=== PATIENT | female | born 1980 | race Two or more races ===

== ENCOUNTER 2024-06-02 21:40 | Emergency (ER) | payer MEDICAID, SELFPAY ==
[2024-06-02 21:44] VITALS: PULSE 92; RESP 18; O2SAT 98
--- NOTE | 2024-06-02 21:56 | PC.NURSE ---
Pt standing without assistance and ambulating in lobby.
[2024-06-02 22:03] VITALS: BP 125/77; PULSE 100; RESP 18; TEMP 36.6; O2SAT 96
[2024-06-02 22:04] VITALS: BMI 34.5
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
[2024-06-02 23:37] LABS: HCG,Qualitative Serum Negative
[2024-06-03 00:30] VITALS: BP 127/85; PULSE 100; RESP 18; TEMP 36.7; O2SAT 97
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
--- NOTE | 2024-06-03 02:04 | PC.NURSE ---
Pt requested Pain medication- stated i would notified DOLLY Curry, new orders given and verified. When this pattern chart writer called the pt back to medicate, security stated she had left prior to being medicated. Medication returned back to [facility].
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
== END 2024-06-03 02:08 | disposition home or self-care (01) ==
PROVIDERS: Physician Assistant; Emergency Provider Emergency Medicine
DX: S70.02XA Contusion of left hip, initial encounter (principal); W50.1XXA Accidental kick by another person, initial encounter; I10 Essential (primary) hypertension; E11.9 Type 2 diabetes mellitus without complications
CPT/HCPCS: 36415; 73503; 84703; 99283

== ENCOUNTER 2024-08-06 02:29 | Emergency (ER) | payer MEDICAID, SELFPAY ==
[2024-08-06 02:32] VITALS: PULSE 106; RESP 16; O2SAT 98
[2024-08-06 02:52] VITALS: BP 143/77; PULSE 84; RESP 20; TEMP 36.3; O2SAT 95
[2024-08-06] MEDS: DIAZEPAM 5 MG TABLET 10 MG PO (04:41)
--- NOTE | 2024-08-06 05:54 | EDNOTE_ITS ---
<Statement entered by Cally Conrad MD - 08/06/24 18:10> As co-signing physician, I was present and available for consult prn. I concur with the plan and care as documented by the midlevel provider. Nausea/Vomit./Diarrhea-RME/HPI General Chief complaint: General Adult/Misc Complain Stated complaint: bugs comeing out of skin Time Seen by Provider: 08/06/24 03:07 Arrival date/time: 08/06/24 02:29 43F with history of homelessness, drug use, DM, and HTN presents to ED with complaint of bugs coming out of her skin. Patient did meth 4 days ago after not for 8 months. Limitations: no limitations Related Data Previous Rx's ?Medication ?Instructions ?Recorded acetaminophen 500 mg capsule 1,000 mg (2 x 500 mg) PO Q6H PRN 06/18/21 fever or pain #30 caps ibuprofen 600 mg tablet 600 mg PO Q8H PRN fever or p ain 06/18/21 #30 tabs ondansetron 4 mg disintegrating 4 mg PO Q8H PRN nausea and 05/08/23 tablet vomiting #10 tabs Allergies Allergy/AdvReac Type Severity Reaction Status Date / Time amoxicillin Allergy Severe Hives Verified 08/06/24 02:40 Review of Systems Review of Systems Systems Reviewed: All systems reviewed, normal except as documented Constitutional Constitutional: Reports system reviewed and no additional complaints, except as documented, Denies fever(s) and Denies headache(s) ENT Ears, Nose, Mouth, and Throat: Denies disequilibrium and Denies headache(s) Cardiovascular Cardiovascular: Reports system reviewed and no additional complaints, except as documented, Denies chest pain and Denies dyspnea Respiratory Respiratory: Reports system reviewed and no additional complaints, except as documented, Denies cough and Denies dyspnea Gastrointestinal Gastrointestinal: Reports system reviewed and no additional complaints, except as documented, Denies abdominal pain, Denies nausea and Denies vomiting Neurologic Neurologic: Reports system reviewed and no additional complaints, except as documented, Denies confusion, Denies disequilibrium and Denies headache(s) Psychiatric Psychiatric: Denies confusion Past Medical History Past Medical History NEUROLOGIC: Positive Head Trauma CARDIAC: Positive Cardiac Disorders and Hypertension; Negative Congestive Heart Failure RESPIRATORY: Negative Chronic Obstructive Pulmonary Disease (COPD) or Asthma GASTROINTESTINAL: Negative Gastrointestinal Disorders GENITOURINARY: Negative Genitourinary Disorders or Renal Disease REPRODUCTIVE: Negative Pelvic Inflammatory Disease MUSCULOSKELETAL: Negative Musculoskeletal Disorders ENT: Positive Head Trauma ENDOCRINE: Positive Diabetes Mellitus Type 2; Negative Diabetes Mellitus Type 1 HEMATOLOGIC: Negative Blood Disorders or Sickle Cell Disease PSYCHO/SOCIAL: Positive Psychiatric Problems, Schizophrenia, Recreational Drug Use, Bipolar Disorder, Depression and Anxiety; Negative Self-Mutilation OTHER HISTORY: Negative Autoimmune Disease Family History FAMILY HISTORY: Positive Family Psychiatric Problems, Family Respiratory Disorders, Family Gastrointestinal Problems, Family Cancer and Family Surgery; Negative Family Cardiac Disorders or Family Anesthesia Reaction Social History SMOKING STATUS: Current every day smoker ED Exam General Limitations: Present no limitations General appearance: Present alert, in no apparent distress and anxious Head Head exam: Present atraumatic Eye Eye exam: Present normal appearance, PERRL and EOMI ENT ENT exam: Present normal exam, normal oropharynx and mucous membranes moist Neck Neck exam: Present normal inspection, full ROM and trachea midline Chest Chest inspection: Present normal inspection and symmetric chest wall rise Respiratory Respiratory exam: Present normal lung sounds bilaterally Cardiovascular Cardiovascular exam: Present regular rate, normal rhythm and normal heart sounds Abdominal Exam Abdominal exam: Present soft and normal bowel sounds Extremities Exam Extremities exam: Present normal inspection and full ROM Back Exam Back exam: Present normal inspection and full ROM Neurological Exam Neurological exam: Present alert, oriented X3 and CN II-XII intact Psychiatric Psychiatric exam: Present normal affect and normal mood Skin Skin exam: Present warm, dry, intact and normal color Course Quality Measures none Orders Category Date Time Status Diazepam [Valium] Med 08/06/24 03:27 Discontinued 10 mg PO X1 ONE Vital Signs Vital signs: Vital Signs Temperature 97.4 F 08/06/24 02:52 Pulse Rate 84 08/06/24 02:52 Respiratory Rate 20 08/06/24 02:52 Blood Pressure 143/77 H 08/06/24 02:52 Pulse Oximetry (%) 95 08/06/24 02:52 Oxygen Delivery Method Room Air 08/06/24 02:52 O2 at 95% on RA and WNLs Nausea/Vomiting/Diarrhea MDM Narrative MDM Narrative:: 43F with history of homelessness, drug use, DM, and HTN presents to ED with complaint of bugs coming out of her skin. Patient did meth 4 days ago after not for 8 months. Physical exam reveals no obvious bugs in skin. Patient is afebrile, alert, but agitated/anxious. Meds and compliance counsel given. Patient data External records reviewed:: [facility] previous records Clinical information provided by:: patient Social determinants that could affect healthcare access:: housing Patient has the following chronic illnesses:: homelessness, drug use, DM, and HTN How is presenting disease/condition affected by chronic disease/condition?: caused by Evaluation data The following diagnostics were reviewed and interpreted by me:: other (specify) (none) Lab and/or radiology exams considered but not ordered:: not ordered Interpretation Summary: n/a Medications / Prescriptions Medications / Prescriptions considered but not ordered:: ordered Medication administrations:: Medication Administration History Discontinued Medications Diazepam (Diazepam 5 Mg Tablet) 10 mg PO X1 ONE Stop: 08/06/24 03:28 Last Admin: 08/06/24 04:41 Dose: 10 mg Documented By: JE above Consultations Consultation(s) initiated? (list below): No Diagnosis Nausea Differential Diagnosis: traveler's diarrhea, food poisoning, gastro enteritis, clostridium difficile infection, drug-induced nausea and vomiting, dehydration and other (drug adverse reaction) Most likely diagnosis given after review of the tests above:: drug adverse reaction Admission Indicated Admission indicated?: not indicated Admission Request Was there a request for admission?: No Disposition Plan Disposition Plan: Discharge Discharge Attestation Discharge Attestation: The patient and all family members were given an opportunity to ask questions and understood the discharge instructions. Discharge instructions specifically effects, indications for sooner follow up or return to the emergency department, and the expected course of current diagnosis. Patient condition: Stable Discharge Plan Plan Patient Disposition: HOME (Self Care) Discharge Disposition comment: Stable Prescriptions/Referrals Prescriptions/Med Rec: No Action ibuprofen 600 mg tablet 600 mg PO Q8H PRN (Reason: fever or pain) Qty: 30 0RF acetaminophen 500 mg capsule 1,000 mg PO Q6H PRN (Reason: fever or pain) Qty: 30 0RF ondansetron 4 mg tablet,disintegrating 4 mg PO Q8H PRN (Reason: nausea and vomiting) Qty: 10 0RF Referrals: No Primary/Family,Physician [Primary Care Provider] - In 1 week Problem List Clinical Impression: Adverse drug reaction Patient/Caregiver Discharge Instructions Education Materials: ED Drug Reaction, Other Additional Instructions: Please follow-up with PCP within 24-48 hours and return immediately if symptoms worsen. Print Language: Kiswahili Stand Alone Forms: Patient Portal Info Letter PA/SINGE WINDER Supervising Physician DOLLY/SINGE WINDER Supervising Physician: Dr. Conrad
== END 2024-08-06 05:34 | disposition home or self-care (01) ==
PROVIDERS: Emergency Provider Emergency Medicine
DX: T50.905A Adverse effect of unspecified drugs, medicaments and biological substances, initial encounter (principal); E11.9 Type 2 diabetes mellitus without complications; I10 Essential (primary) hypertension
CPT/HCPCS: 99282; A9270